=== PATIENT | female | born 1965 | race Caucasian/White ===

== ENCOUNTER 2018-01-08 14:34 | Emergency (ER) | payer OTHER ==
[~2018-01-08] VITALS: Ht 162.6 cm; Wt 74.8 kg
--- NOTE | 2018-01-08 14:36 | ED PSYCHIATRIC COMPLAINT ---
History of Present Illness General Chief Complaint: ETOH/Drug Related Complaint Stated Complaint: ETOH Source: patient, EMS Exam Limitations: clinical condition Vital Signs & Intake/Output Vital Signs & Intake/Output Vital Signs Date Time Temp Pulse Resp B/P B/P Pulse O2 O2 Flow FiO2 Mean Ox Delivery Rate 01/08 1549 98.7 105 20 144/76 01/08 1543 98.7 105 20 144/76 98 Room Air 01/08 1507 Room Air Allergies Coded Allergies: No Known Allergies (01/08/18) Reconcile Medications Insulin Glargine,Hum.rec.anlog (Lantus Solostar) 100 UNIT/ML (3 ML) INSULN.PEN 30 UNIT SC DAILY DM (Reported) Levothyroxine Sodium (Synthroid) 175 MCG TABLET 1 TAB PO DAILY THYROID ( Reported) Triage Nurses Notes Reviewed? yes Onset: Abrupt Duration: day(s): (FEW) Timing: recent history Severity: mild, moderate Associated Symptoms: anxiety HPI: This is a 52-year-old female brought in by ambulance from home for chief complaint of being intoxicated. Per EMS she called the [facility] to see that she was drinking a can do this anymore. EMS states that they were in the same house yesterday for her significant other who was drinking. The house is a dopplerable conditions and they removed the chicken and droppings from the house. She denies any SI or HI. Past History Medical History Any Pertinent Medical History? see below for history Psychiatric: alcohol dependence Surgical History Surgical History: non-contributory Psychosocial History ETOH Use: alcoholic Illicit Drug Use: denies illicit drug use Family History Hx Contributory? No Review of Systems Review of Systems Constitutional: Denies: chills, fever. EENTM: Reports: no symptoms. Respiratory: Denies: cough, short of breath, sputum production. Cardiovascular: Denies: chest pain. GI: Reports: nausea. Denies: abdominal pain, vomiting. Genitourinary: Denies: discharge, dysuria. Musculoskeletal: Reports: no symptoms. Skin: Reports: no symptoms. Neurological/Psychological: Reports: no symptoms. Hematologic/Endocrine: Denies: bruising, bleeding, polyuria, polydipsia. Immunologic/Allergic: Reports: no symptoms. All Other Systems: Reviewed and Negative Physical Exam Physical Exam General Appearance: well developed/nourished, alert, awake, anxious, mild distress Head: atraumatic Eyes: Bilateral: normal appearance, PERRL. 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 patient not suicidal Progress Differential Diagnosis: ALCOHOL ABUSE, ALCOHOL DEPENDENCE, DEPRESSION Plan of Care: Orders Procedure Date/time Status CIWA 01/08 1545 Active FingerStick- Glucose 01/08 1458 Active EKG 01/08 1457 Active URINE DRUG SCREEN FOR ER ONLY 01/08 1437 Active URINALYSIS 01/08 1437 Active MAGNESIUM 01/08 1437 Complete ETHANOL 01/08 1437 Complete COMPREHENSIVE METABOLIC PANEL 01/08 1437 Complete CBC WITHOUT DIFFERENTIAL 01/08 1437 Complete Current Medications Sig/Nava Start time Last Medication Dose Stop Time Status Admin Ondansetron HCl 4 MG ONCE ONE 01/08 1500 CAN (Zofran) 01/08 1501 Laboratory Tests 01/08/18 1535: Anion Gap 20 H, Estimated GFR > 60, BUN/Creatinine Ratio 18.0, Glucose 150 H, Calcium 9.5, Magnesium 1.8, Total Bilirubin 1.7 H, AST 79 H, ALT 61 H, Alkaline Phosphatase 120, Total Protein 8.7 H, Albumin 5.0, Globulin 3.7, Albumin/Globulin Ratio 1.4, CBC w Diff NO MAN DIFF REQ, RBC 4.53, MCV 92.0, MCH 31.3 H, MCHC 34.0, RDW 12.3, MPV 7.7, Gran % 62.8, Lymphocytes % 30.9, Monocytes % 5.2, Eosinophils % 0.7, Basophils % 0.4, Absolute Granulocytes 5.3, Absolute Lymphocytes 2.6, Absolute Monocytes 0.4, Absolute Eosinophils 0.1, Absolute Basophils 0, Serum Alcohol 110.0 5:10 PM Patient is now decided that she does not want to stay in the ER for evaluation for possible inpatient detox admission. No SI or HI. She called a friend who is willing to pick her up and she will follow up with her outpatient program [facility] which had been previously court ordered. Initial ED EKG: SINUS TACH @100 BPM, QTC 486, INFERIOR Q Departure Departure Time of Disposition: 1711 Disposition: HOME OR SELF CARE Condition: Stable Clinical Impression Primary Impression: Alcohol intoxication Additional Instructions: Please follow-up with the outpatient detox program that you are already associated with or one of the detox facilities listed on her discharge summary. Turn to the ER for any changing or worsening symptoms. Departure Forms: Customer Survey General Discharge Information
[2018-01-08 15:48] LABS: ABSOLUTE BASOPHIL COUNT 0 /CUMM (0.0-0.2); ABSOLUTE EOSINOPHIL COUNT 0.1 /CUMM (0.0-0.7); ABSOLUTE GRANULOCYTE CT 5.3 /CUMM (1.4-6.5); ABSOLUTE LYMPH COUNT 2.6 /CUMM (1.2-3.4); ABSOLUTE MONOCYTE COUNT 0.4 /CUMM (0.10-0.60); BASOPHIL % 0.4 % (0.0-2.0); EOSINOPHIL % 0.7 % (0-5); GRANULOCYTE % 62.8 % (42.2-75.2); HEMATOCRIT 41.7 % (37-47); MEAN CORPUSCULAR HGB 31.3 PG (27.0-31.0); MEAN PLATELET VOLUME 7.7 FL (7.4-10.4); PLATELET COUNT 315 /CUMM (130-400); RBC DISTRIBUTION WIDTH 12.3 % (11.5-14.5); RED BLOOD CELL CT 4.53 /CUMM (4.20-5.40); WHITE BLOOD CELL COUNT 8.4 /CUMM (4.8-10.8)
[2018-01-08] MEDS ORDERED: LANTUS SOL100 UNIT/1 SC (15:59)
[2018-01-08] MEDS ORDERED: SYNTHROID175 MCG PO (15:59)
[2018-01-08 19:02] VITALS: BP 146/78
== END 2018-01-08 19:03 ==
LOC: ERH 14:34
PROVIDERS: Physician Assistant Medical
DX: F10.129 Alcohol abuse with intoxication, unspecified (principal)
CPT/HCPCS: 80307; 93005; 93010; G0480

== ENCOUNTER 2018-03-27 09:33 | Emergency (ER) | payer OTHER, MEDICARE ==
[~2018-03-27 09:33] MED LIST: LANTUS SOL100 UNIT/1 SC; SYNTHROID175 MCG PO
--- NOTE | 2018-03-27 09:52 | ED PSYCHIATRIC COMPLAINT ---
History of Present Illness General Chief Complaint: ETOH/Drug Related Complaint Stated Complaint: BIBA FOR ETOH DETOX Source: patient Exam Limitations: no limitations Vital Signs & Intake/Output Vital Signs & Intake/Output Vital Signs Date Time Temp Pulse Resp B/P B/P Pulse O2 O2 Flow FiO2 Mean Ox Delivery Rate 03/27 1205 96.3 79 18 179/86 98 Room Air 03/27 1051 98 Room Air 03/27 1005 97.9 88 18 157/82 97 Room Air Allergies Coded Allergies: No Known Allergies (01/08/18) Reconcile Medications Insulin Glargine,Hum.rec.anlog (Lantus Solostar) 100 UNIT/ML (3 ML) INSULN.PEN 30 UNIT SC DAILY DM (Reported) Levothyroxine Sodium (Synthroid) 175 MCG TABLET 1 TAB PO DAILY THYROID ( Reported) Triage Note: 52F RETURNS TO ED BIBA FOR WITHDRAWAL SYMPTOMS. ENDORSES 1 VODKA PINT DAILY, LAST DRINK LAST NIGHT. DENIES WITHDRAWAL SEIZURES OR DT'S. ARRIVES TACHYCARDIC, HYPERTENSIVE AND DIAPHORETIC. MINIMAL TREMOR OBSERVED. DENIES SI/HI. Triage Nurses Notes Reviewed? yes Onset: Abrupt Duration: day(s):, constant Severity: moderate, severe HPI: 52-year-old female comes into the emergency room for alcohol withdrawal symptoms. She has been drinking alcohol for 20 years. She drinks vodka on a daily basis. Her last drink was yesterday. She reports that she has been feeling nauseous with vomiting as well as associated shaking and tremors. Difficulty with ambulation and cannot walk. Denies any history of liver cirrhosis. Denies any suicidal or homicidal ideation. Denies any other substance abuse. The main reason that she had a come in today was her difficulty with walking and ambulation feeling unsteady. Past History Travel History Traveled to [place] past 21 day No Medical History Any Pertinent Medical History? see below for history Neurological: NONE EENT: NONE Cardiovascular: "heart problem" Respiratory: NONE Gastrointestinal: NONE Hepatic: NONE Renal: NONE Musculoskeletal: NONE Psychiatric: alcohol dependence Endocrine: NONE Blood Disorders: NONE Surgical History Surgical History: non-contributory Psychosocial History What is your primary language Citizen [place] Tobacco Use: Refused to answer Family History Hx Contributory? No Review of Systems Review of Systems Constitutional: Reports: no symptoms. EENTM: Reports: no symptoms. Respiratory: Reports: no symptoms. Cardiovascular: Reports: no symptoms. GI: Reports: see HPI. Genitourinary: Reports: no symptoms. Musculoskeletal: Reports: no symptoms. Skin: Reports: no symptoms. Neurological/Psychological: Reports: see HPI. Hematologic/Endocrine: Reports: no symptoms. Immunologic/Allergic: Reports: no symptoms. All Other Systems: Reviewed and Negative Physical Exam Physical Exam General Appearance: well developed/nourished, mild distress Head: atraumatic Eyes: Bilateral: normal appearance. Ears, Nose, Throat: normal ENT inspection, hearing grossly normal Neck: normal inspection Respiratory: no respiratory distress Cardiovascular: regular rate/rhythm Extremities: normal range of motion Neurological/Psychiatric: awake, alert, anxious Appearance/Memory/Insight: appropriate insight Behavoir/Eye Contact/Speech: cooperative Thoughts/Hallucinations: no apparent hallucination Skin: intact, normal color, warm/dry SAD PERSONS Done? patient not suicidal Progress Differential Diagnosis: dementia, drug intoxication, drug overdose, drug withdrawal Plan of Care: Orders Procedure Date/time Status Regular Diet 03/27 L Active CIWA 03/27 0951 Active URINE DRUGS OF ABUSE 03/27 951 Complete TROPONIN LEVEL 03/27 0951 Complete LIPASE 03/27 0951 Complete ETHANOL 03/27 0951 Complete COMPREHENSIVE METABOLIC PANEL 03/27 951 Complete CBC WITHOUT DIFFERENTIAL 03/27 951 Complete AMYLASE 03/27 0951 Complete EKG 03/27 0951 Active Laboratory Tests 03/27/18 1034: Urine Opiates Screen < 100, Methadone Screen 48, Barbiturate Screen < 60, Ur Phencyclidine Scrn < 6.00, Amphetamines Screen < 100, U Benzodiazepines Scrn < 85, Urine Cocaine Screen < 50, Urine Cannabis Screen < 5.00 03/27/18 1017: Anion Gap 14, Estimated GFR > 60, BUN/Creatinine Ratio 18.0, Glucose 171 H, Calcium 9.2, Total Bilirubin 0.9, AST 131 H, ALT 84 H, Alkaline Phosphatase 109, Troponin I < 0.01, Total Protein 7.9, Albumin 4.3, Globulin 3.6, Albumin/ Globulin Ratio 1.2, Amylase 76, Lipase 184, CBC w Diff NO MAN DIFF REQ, RBC 4.24 , MCV 91.9, MCH 32.0 H, MCHC 34.8, RDW 13.4, MPV 7.8, Gran % 64.0, Lymphocytes % 27.9, Monocytes % 6.6, Eosinophils % 1.1, Basophils % 0.4, Absolute Granulocytes 2.9, Absolute Lymphocytes 1.3, Absolute Monocytes 0.3, Absolute Eosinophils 0.1, Absolute Basophils 0, Serum Alcohol 40.0 Comments: 03/27/2018 1:27:10 PM Patient's alcohol level is 0 on the breathalyzer. She does not want to stay for alcohol detox or any further evaluation for withdrawal symptoms. No suicidal or homicidal ideation. She was offered information for detox facilities but she declined. Return if any other concerns. Departure Departure Disposition: HOME OR SELF CARE Condition: Stable Clinical Impression Primary Impression: ETOH abuse Referrals: Patient Has No Primary Care Dr (PCP/Family) Additional Instructions: Follow-up with detox facility. You have elected to not stay here for further observation in the emergency room to monitor for worsening withdrawal symptoms. alcohol withdrawal could potentially be life-threatening. Please go over all results of today's visit with your primary care doctor. Contact your primary care doctor to let them know you were here in the emergency room. There may be nonspecific findings which may not be related to your visit today here in the emergency room but may require further evaluation and chronic monitoring by your primary care doctor. If you had a laceration today the chance of foreign body always remains. You should follow-up with your primary care doctor for recheck in 3-5 days for a wound check. If you had an x-ray done there is a chance that a fracture could have been missed on initial read and you should follow-up with your primary care doctor for repeat x-rays if symptoms persist. If your blood pressure was elevated here in the emergency room please have rechecked by [facility] primary care doctor within the next 48. If you were prescribed a narcotic here in the emergency room or any type of controlled substances you're not allowed to drive while taking this medication or operate any type of heavy machinery. Narcotics can make you feel lightheaded dizziness nausea and can cause constipation. You may need to car pick up driver a stool softener. Thank you for choosing [facility] emergency room. Please return to the emergency room immediately if you have any other concerns worsening of symptoms. Departure Forms: Customer Survey General Discharge Information ED Attending Observation Initial Observation Note: I have seen and personally examined ANAID KAYUREEN on 03/27/18 at 0958. I agree with the current emergency department documentation. The disposition (admission or discharge) is uncertain at this time, she needs a period of observation for the following reason(s): The ED Nurse caring for this patient has been personally informed as to what the patient is being observed for. The ED Nurse caring for this patient has been personally informed as to what the patient is being observed for.
[2018-03-27 10:38] LABS: ABSOLUTE BASOPHIL COUNT 0 /CUMM (0.0-0.2); ABSOLUTE EOSINOPHIL COUNT 0.1 /CUMM (0.0-0.7); ABSOLUTE GRANULOCYTE CT 2.9 /CUMM (1.4-6.5); ABSOLUTE LYMPH COUNT 1.3 /CUMM (1.2-3.4); ABSOLUTE MONOCYTE COUNT 0.3 /CUMM (0.10-0.60); BASOPHIL % 0.4 % (0.0-2.0); EOSINOPHIL % 1.1 % (0-5); MEAN CORPUSCULAR HGB CONC 34.8 G/DL (33.0-37.0); MEAN CORPUSCULAR VOLUME 91.9 FL (81.0-99.0); MEAN PLATELET VOLUME 7.8 FL (7.4-10.4); PLATELET COUNT 174 /CUMM (130-400); RBC DISTRIBUTION WIDTH 13.4 % (11.5-14.5); RED BLOOD CELL CT 4.24 /CUMM (4.20-5.40); WHITE BLOOD CELL COUNT 4.5 /CUMM (4.8-10.8)
[2018-03-27 12:05] VITALS: BP 179/86
== END 2018-03-27 13:07 ==
LOC: ERH 09:33
PROVIDERS: Physician Assistant Medical
DX: F10.10 Alcohol abuse, uncomplicated (principal)
CPT/HCPCS: 80307; 93005; 93010; G0480; J3101